=== PATIENT | male | born 1980 ===

== ENCOUNTER 2016-11-05 08:53 | Emergency (ER) | payer BC ==
[~2016-11-05] VITALS: Ht 162.6 cm; Wt 68.0 kg
[2016-11-05] MEDS ORDERED: DIPHTH,PERTUSS(ACELL),TET TOX 0.5 ML DISP.SYRIN. VAX IM ONE (09:15)
[2016-11-05] MEDS ORDERED: NEOMY/BACITR/POLYMYXIN OINT PACKET. TP ONE (09:15)
[2016-11-05] MEDS ORDERED: HYDROCODONE/APAP 5/325MG TABLET. PO ONE (09:15)
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
[2016-11-05] MEDS ORDERED: CYCL10TA2 PO (10:40)
[2016-11-05] MEDS ORDERED: NAPR375T3 PO (10:40)
[2016-11-05 11:11] VITALS: BP 115/76
== END 2016-11-05 11:22 | disposition home or self-care (01) ==
LOC: ER 08:53
DX: S00.01XA Abrasion of scalp, initial encounter (principal); M25.511 Pain in right shoulder; H11.32 Conjunctival hemorrhage, left eye; V59.9XXA Occupant (driver) (passenger) of pick-up truck or van injured in unspecified traffic accident, initial encounter; Y92.413 State road as the place of occurrence of the external cause; Y93.89 Activity, other specified; Y99.8 Other external cause status
CPT/HCPCS: 70450; 73030; 90471; 90715; 99284-25